=== PATIENT | male | born 1960 | race Caucasian/White ===

== ENCOUNTER 2017-04-26 11:56 | Emergency (ER) | payer OTHER ==
[~2017-04-26] VITALS: Ht 172.7 cm; Wt 75.0 kg
[2017-04-26 13:19] LABS: PATH.CAST-FLAG NOT PRESENT; SPERM-FLAG NOT PRESENT; SRC-FLAG NOT PRESENT; XTAL-FLAG NOT PRESENT; YLC-FLAG NOT PRESENT
[2017-04-26 13:28] LABS: ASPARTATE AMINO TRANSFERASE 13 U/L (15-37); BLOOD UREA NITROGEN 10 mg/dL (7-18)
[2017-04-26] MEDS ORDERED: SODIUM CHLORIDE 0.9% 1,000ML IV ONE (13:30)
[2017-04-26] MEDS ORDERED: SODIUM CHLORIDE FLUSH 10ML SYR IVF ONE (13:30)
[2017-04-26] MEDS ORDERED: MORPHINE SULFATE 4 MG/ML, 1ML ONE (13:41)
[2017-04-26] MEDS ORDERED: ONDANSETRON 2MG/ML, 2ML ONE (13:41)
[2017-04-26] MEDS ORDERED: MORPHINE SULFATE 4 MG/ML, 1ML IVPush PRN (14:00)
[2017-04-26] MEDS ORDERED: ONDANSETRON 2MG/ML, 2ML IVPush ONE (14:00)
[2017-04-26] MEDS ORDERED: CIPROFLOXACIN/PMX 400MG/200ML 200 ML ONE (14:42)
[2017-04-26] MEDS ORDERED: METRONIDAZOLE PMX 500MG/100ML 100 ML IVPB ONE (15:00)
[2017-04-26] MEDS ORDERED: CIPROFLOXACIN/PMX 400MG/200ML 100 ML IVPB ONE (15:00)
[2017-04-26] MEDS ORDERED: METRONIDAZOLE PMX 500MG/100ML 100 ML ONE (15:37)
[2017-04-26 16:58] VITALS: BP 124/69
== END 2017-04-26 17:01 | disposition home or self-care (01) ==
LOC: ED 16:55
DX: K57.32 Diverticulitis of large intestine without perforation or abscess without bleeding (principal); I10 Essential (primary) hypertension; N20.0 Calculus of kidney
CPT/HCPCS: 36415; 74176; 80053; 81001; 83690; 85025; 96361; 96365; 96366; 96368; 96375; 99285; J0744; J2405; J7030